=== PATIENT | female | born 1985 | race Caucasian/White ===

== ENCOUNTER 2019-09-21 13:42 | Emergency (ER) | payer OTHER ==
[~2019-09-21] VITALS: Ht 185.4 cm; Wt 58.1 kg
[2019-09-21 13:55] VITALS: BP 115/75
[2019-09-21 15:22] LABS: APPEARANCE,URINE CLEAR; BILIRUBIN, URINE NEGATIVE (NEGATIVE); COLOR,URINE AMBER; GLUCOSE, URINE (UA) NEGATIVE (NEGATIVE); KETONES,URINE NEGATIVE (NEGATIVE); LEUKOCYTE ESTERASE ,URINE NEGATIVE (NEGATIVE); NITRITE,URINE NEGATIVE (NEGATIVE); PH,URINE 6 (4.5-8.0); PROTEIN,URINE NEGATIVE (NEGATIVE); UROBILINOGEN,URINE NORMAL MG/DL (0.0-1.0)
--- NOTE | 2019-09-21 15:27 | NUR ---
ED Nurse Note: Patient arrived to ED home c/o vaginal spotting x 2 days. Patient states she is 8 weeks . No recent falls or trauma. Patient has not been saturating pads, just slight spotting. Patient AxO x 4, VSS. No s/s of acute distress. Bed in lowest position. at bedside.
[2019-09-21 16:22] LABS: BASOPHILS % (AUTO) 0.6 % (0.0-2.0); EOSINOPHILS % (AUTO) 1.1 % (0.0-3.0); HEMATOCRIT 38.4 % (37.0-47.0); LYMPHOCYTES % (AUTO) 14.6 % (20.0-45.0); MEAN CORPUSCULAR VOLUME 94 FL (80-99); NEUTROPHILS % (AUTO) 78.7 % (45.0-75.0); PLATELET COUNT 223 K/UL (150-450); RED CELL DISTRIBUTION WIDTH 11.3 % (11.6-14.8)
[2019-09-21 16:30] LABS: ANION GAP 10 mmol/L (5-15); BLOOD UREA NITROGEN 9 mg/dL (7-18); CALCIUM 8.7 MG/DL (8.5-10.1); CARBON DIOXIDE 26 MMOL/L (21-32); CHLORIDE 104 MMOL/L (98-107); CREATININE 0.5 MG/DL (0.55-1.30); POTASSIUM 4.4 MMOL/L (3.5-5.1); SODIUM 139 MMOL/L (136-145)
[2019-09-21 16:35] LABS: ALANINE AMINOTRANSFERASE 18 U/L (12-78); ALBUMIN 2.9 G/DL (3.4-5.0); ALBUMIN/GLOBULIN RATIO 0.6 (1.0-2.7); ALKALINE PHOSPHATASE 69 U/L (46-116); ASPARTATE AMINO TRANSFERASE 13 U/L (15-37); BILIRUBIN,TOTAL 0.2 MG/DL (0.2-1.0)
--- NOTE | 2019-09-21 17:12 | Emergency Room Report ---
History of Present Illness General Chief Complaint: Vaginal Source: Patient Present Illness HPI 33-year-old female who is G1, P0 and 15 weeks here complaining of 3 days of brownish discharge from the vaginal canal. Denies any abdominal pain or cramping, clotting, hematuria. Denies any urinary frequency and urgency. Patient is traveling with her from [place] and reports that she has been walking around and traveling in the past few weeks. Denies any trauma to the vaginal canal. Complains of 5 days of sore throat, cough and congestion. Has not taken medication for symptom relief. Denies fever and chills at this time. Denies syncope, lightheadedness, dizziness. Patient reports that she has a flight to go back to [place] tomorrow. No calf tenderness noted. No chest pain shortness of breath. Denies pleuritic chest pain. Allergies: Coded Allergies: No Known Allergies (Unverified , 09/21/19) Patient History Past Medical History: see triage record Past Surgical History: unable to obtain Pertinent Family History: none Last Menstrual Period: 06/08/2019 Now: Yes : 0 Para: 0 Immunizations: UTD Reviewed Nursing Documentation: PMH: Agreed; PSxH: Agreed Nursing Documentation-PMH Past Medical History Deferred: Patient Unconscious Past Medical History: No Stated History Review of Systems All Other Systems: negative except mentioned in HPI Physical Exam Vital Signs Date Time Temp Pulse Resp B/P (MAP) Pulse Ox O2 Delivery O2 Flow Rate FiO2 09/21/19 13:48 97.9 93 18 115/75 (88) 99 Room Air Sp02 EP Interpretation: reviewed, normal General Appearance: no apparent distress, alert, GCS 15, non-toxic Head: normocephalic, atraumatic Eyes: bilateral eye normal inspection, bilateral eye PERRL ENT: hearing grossly normal, no angioedema, normal voice, TMs + canals normal, tonsillar exudate Neck: full range of motion, supple, supple/symm/no masses, other - Anterior cervical lymphadenopathy Respiratory: chest non-tender, lungs clear, normal breath sounds, no rhonchi, no respiratory distress, no retraction, no wheezing, speaking full sentences Cardiovascular #1: regular rate, rhythm, no edema, no murmur Gastrointestinal: non tender, soft, no mass Rectal: deferred Musculoskeletal: back normal, no calf tenderness Neurologic: alert, motor strength/tone normal, oriented x3, sensory intact, responsive, speech normal Psychiatric: normal inspection, judgement/insight normal Skin: no rash Lymphatic: adenopathy - Anterior cervical lymphadenopathy Medical Decision Making PA Attestation All diagnoses and treatment plans were reviewed and discussed with my supervising physician Dr. Garcia Diagnostic Impression: Primary Impression: Spotting during Additional Impression: Strep pharyngitis ER Course 33-year-old female who is G1, P0 and 15 weeks here complaining of 3 days of brownish discharge from the vaginal canal. Denies any abdominal pain or cramping, clotting, hematuria. Denies any urinary frequency and urgency. Patient is traveling with her from [place] and reports that she has been walking around and traveling in the past few weeks. Denies any trauma to the vaginal canal. Complains of 5 days of sore throat, cough and congestion. Has not taken medication for symptom relief. Denies fever and chills at this time. Denies syncope, lightheadedness, dizziness. Patient reports that she has a flight to go back to [place] tomorrow. No calf tenderness noted. No chest pain shortness of breath. Denies pleuritic chest pain. Ddx considered but are not limited to: Ectopic , threatened , spotting during , Vital signs: are WNL, pt. is afebrile H&PE are most consistent with: Spotting during , strep pharyngitis ORDERS: OB ultrasound, CBC, CMP, type and screen, UA, beta-hCG, amoxicillin, guaifenesin ED INTERVENTIONS: None required at this time. DISCHARGE: At this time pt. is stable for d/c to home. Will provide printed patient care instructions, and any necessary prescriptions. Care plan and follow up instructions have been discussed with the patient prior to discharge. At this time ultrasound is within normal limits, blood work is within normal limit, patient has been having brown discharge possibly secondary to continuous coughing. Advised patient to keep walking around in the airplane tomorrow during her flight to prevent DVT. Also follow-up with her GARAGE MANAGER when she gets home. At this time no further imaging or blood work is needed patient agrees with the above treatment. Patient okay to take Tylenol for symptom relief. CT/MRI/US Diagnostic Results CT/MRI/US Diagnostic Results : Imaging Test Ordered: OB US Impression heart rate 137, no subchorionic hemorrhage, single intrauterine , placenta is posterior, no other abnormalities noted Last Vital Signs Date Time Temp Pulse Resp B/P (MAP) Pulse Ox O2 Delivery O2 Flow Rate FiO2 09/21/19 13:55 97.9 18 115/75 99 Room Air 09/21/19 13:48 93 Disposition: HOME, SELF-CARE Condition: Stable Scripts Guaifenesin* (GUAIFENESIN) 100 Mg/5 Ml Liquid 5 ML ORAL Q6H, #120 ML 0 Refills Prov: Maryam Baum 09/21/19 Amoxicillin* (AMOXIL*) 500 Mg Capsule 500 MG ORAL EVERY 12 HOURS for 10 Days, #20 CAP Prov: Maryam Baum 09/21/19 Referrals: NOT CHOSEN IPA/,REFERRING (PCP) Patient Instructions: Pharyngitis, [id number] Additional Instructions: Take medication as directed, follow-up with your primary care provider, you to be seen by your GARAGE MANAGER in 24 to 48 hours. To stay mobile while you are on the plane ride as you are high risk for developing blood clot in your legs. If worsening symptoms return to the emergency room also elevate your legs. Maryam Baum Sep 21, 2019 17:12
[2019-09-21] MEDS ORDERED: GUAIFENESI100 MG/5 M ORAL (17:13)
[2019-09-21] MEDS ORDERED: AMOXICILLIN500 MG ORAL (17:13)
[2019-09-21 17:27] VITALS: BP 120/70
--- NOTE | 2019-09-21 17:30 | NUR ---
discharged home with instruction and rx follow up with pmd
== END 2019-09-21 17:31 | disposition home or self-care (01) ==
LOC: EMR 14:37
DX: O26.852 Spotting complicating pregnancy, second trimester (principal); O99.512 Diseases of the respiratory system complicating pregnancy, second trimester; J02.0 Streptococcal pharyngitis; Z3A.15 15 weeks gestation of pregnancy
CPT/HCPCS: 76805; 80053; 81003; 81025; 84702; 85025; 99284